=== PATIENT | male | born 1980 | race American Indian/Alaskan Native ===

== ENCOUNTER 2021-01-17 10:36 | Emergency (ER) | payer SELFPAY ==
[2021-01-17] MEDS ORDERED: DICYCLOMINE 20 MG TAB PO ONE (10:52)
[2021-01-17] MEDS ORDERED: FAMOTIDINE 20 MG TAB PO ONE (10:52)
[2021-01-17 10:53] VITALS: BP 117/84
[2021-01-17] MEDS ORDERED: ONDANSETRON 4 MG ODT TAB PO ONE (10:53)
[2021-01-17 11:46] LABS: Bacteria,Urine 1+ /HPF (Negative); Bilirubin,Urine NEG (Negative); Blood,Urine NEG (Negative); Color,Urine Amber (Yellow); Mucus,Urine 1+ /HPF; Protein,Urine <15 mg/dL mg/dL (Negative)
--- NOTE | 2021-01-17 11:51 | Emergency Department Report ---
ED Abdominal Pain HPI - General Chief Complaint: Abdominal Pain Stated Complaint: PAIN IN THE LOWER CHEST, HAVE NOT EATEN IN A WEEK Time Seen by Provider: 01/17/21 10:48 Source: patient Mode of arrival: Ambulatory Limitations: No Limitations - History of Present Illness Initial Comments: This is a 40-year-old male nontoxic, well nourished in appearance, no acute signs of distress presents to the ED with c/o of nausea and vomiting and abdominal pain several days. Patient describes vomiting as food content and yellow gastric acid. Patient describes abdominal pain as cramping and aching with level of 3/10 in the upper abdomen/epigastric area. Patient denies any radiation of pain. Patient denies chest pain, short of breath, fever, hemoptysis, blood in stool, chills, headache, stiff neck, numbness or tingling. Patient denies any diarrhea or constipation. Denies any blood in stool or vomit. Patient denies any recent travels. Patient denies any allergies or significant past medical history. MD Complaint: abdominal pain -: days(s) Location: LUQ, RUQ, epigastric Radiation: none Migration to: no migration Severity: mild Severity scale (0 -10): 3 Quality: cramping, aching Consistency: intermittent Improves With: nothing Worsens With: nothing Associated Symptoms: nausea, vomiting. denies: diarrhea, fever, chills, constipation, dysuria, hematemesis, hematochezia, melena, hematuria, anorexia, syncope - Related Data Allergies Allergy/AdvReac Type Severity Reaction Status Date / Time No Known Allergies Allergy Unverified 01/17/21 10:45 ED Review of Systems ROS: Stated complaint: PAIN IN THE LOWER CHEST, HAVE NOT EATEN IN A WEEK Other details as noted in HPI Comment: All other systems reviewed and negative Constitutional: denies: chills, fever Eyes: denies: eye pain, eye discharge, vision change ENT: denies: ear pain, throat pain Respiratory: denies: cough, shortness of breath, wheezing Cardiovascular: denies: chest pain, palpitations Endocrine: no symptoms reported Gastrointestinal: abdominal pain, nausea, vomiting. denies: diarrhea, constipation, hematemesis, melena, hematochezia Genitourinary: denies: urgency, dysuria Musculoskeletal: denies: back pain, joint swelling, arthralgia Skin: denies: rash, lesions Neurological: denies: headache, weakness, paresthesias Psychiatric: denies: anxiety, depression Hematological/Lymphatic: denies: easy bleeding, easy bruising ED Past Medical Hx - Past Medical History Previous Medical History?: No - Surgical History Past Surgical History?: No - Social History Smoking Status: Current Every Day Smoker Substance Use Type: Alcohol, Marijuana ED Physical Exam - General Limitations: No Limitations General appearance: alert, in no apparent distress - Head Head exam: Present: atraumatic, normocephalic - Eye Eye exam: Present: normal appearance - Neck Neck exam: Present: normal inspection, full ROM. Absent: tenderness, meningismus, lymphadenopathy - Respiratory Respiratory exam: Present: normal lung sounds bilaterally. Absent: respiratory distress, wheezes, rales, rhonchi, stridor, chest wall tenderness, accessory m uscle use, decreased breath sounds, prolonged expiratory - Cardiovascular Cardiovascular Exam: Present: regular rate, normal rhythm, normal heart sounds. Absent: bradycardia, tachycardia, irregular rhythm, systolic murmur, diastolic murmur, rubs, gallop - GI/Abdominal GI/Abdominal exam: Present: soft, tenderness (RUQ), normal bowel sounds. Absent: distended, guarding, rebound, rigid, diminished bowel sounds - Extremities Exam Extremities exam: Present: normal inspection, full ROM - Back Exam Back exam: Present: normal inspection, full ROM. Absent: tenderness, CVA tenderness (R), CVA tenderness (L), muscle spasm, paraspinal tenderness, vertebral tenderness, rash noted - Neurological Exam Neurological exam: Present: alert, oriented X3, normal gait - Psychiatric Psychiatric exam: Present: normal affect, normal mood - Skin Skin exam: Present: warm, dry, intact, normal color. Absent: rash ED Course Vital Signs 01/17/21 10:49 Temperature 98.9 F Pulse Rate 75 Respiratory 20 Rate Blood Pressure 117/84 O2 Sat by Pulse 99 Oximetry - Reevaluation(s) Reevaluation #1: 01/17/21 11:51 Patient is speaking in full sentences with no signs of distress noted. Reevaluation #2: 01/17/21 14:15 Patient is not in the waiting room anywhere to be found. RN try to contact patient with phone number listed but was unsuccessful. Patient eloped without telling anybody at this time. CT abd with IV contrast ordered but patient is not found in the ED. I was not able to reevaluate patient or complete the ER physical exam, treatment, and diagnostic imagings. ED Medical Decision Making - Lab Data Result diagrams: 01/17/21 13:04 01/17/21 13:04 Lab Results 01/17/21 01/17/21 01/17/21 Range/Units 11:04 13:04 13:04 WBC 7.5 (4.5-11.0) K/mm3 RBC 4.64 (3.65-5.03) M/mm3 Hgb 14.1 (11.8-15.2) gm/dl Hct 39.5 (35.5-45.6) % MCV 85 (84-94) fl MCH 30 (28-32) pg MCHC 36 H (32-34) % RDW 17.2 H (13.2-15.2) % Plt Count 139 L (140-440) K/mm3 Lymph % (Auto) 21.9 (13.4-35.0) % [place] % (Auto) 9.7 H (0.0-7.3) % Eos % (Auto) 2.2 (0.0-4.3) % Baso % (Auto) 0.4 (0.0-1.8) % Lymph # (Auto) 1.7 (1.2-5.4) K/mm3 [place] # (Auto) 0.7 (0.0-0.8) K/mm3 Eos # (Auto) 0.2 (0.0-0.4) K/mm3 Baso # (Auto) 0.0 (0.0-0.1) K/mm3 Seg Neutrophils % 65.8 (40.0-70.0) % Seg Neutrophils # 5.0 (1.8-7.7) K/mm3 PT (12.2-14.9) Sec. INR (0.87-1.13) APTT (24.2-36.6) Sec. Sodium 134 L (137-145) mmol/L Potassium 4.0 (3.6-5.0) mmol/L Chloride 93.8 L (98-107) mmol/L Carbon Dioxide 32 H (22-30) mmol/L Anion Gap 12 mmol/L BUN 12 (9-20) mg/dL Creatinine 1.0 (0.8-1.3) mg/dL Estimated GFR > 60 ml/min BUN/Creatinine Ratio 12 % Glucose 94 (75-100) mg/dL Calcium 9.4 (8.4-10.2) mg/dL Total Bilirubin 1.70 H (0.1-1.2) mg/dL AST 16 (5-40) units/L ALT 6 L (7-56) units/L Alkaline Phosphatase 92 (35-129) units/L Troponin T < 0.010 (0.00-0.029) ng/mL Total Protein 8.2 (6.3-8.2) g/dL Albumin 4.7 (3.9-5) g/dL Albumin/Globulin Ratio 1.3 % Lipase (13-60) units/L Urine Color [place] (Yellow) Urine Turbidity Clear (Clear) Urine pH 6.0 (5.0-7.0) Ur Specific [place] 1.021 (1.003-1.030) Urine Protein <15 mg/dl (Negative) mg/dL Urine Glucose (UA) Neg (Negative) mg/dL Urine Ketones Neg (Negative) mg/dL Urine Blood Neg (Negative) Urine Nitrite Neg (Negative) Urine Bilirubin Neg (Negative) Urine Urobilinogen 4.0 (<2.0) mg/dL Ur Leukocyte Esterase Tr (Negative) Urine WBC (Auto) 2.0 (0.0-6.0) /HPF Urine RBC (Auto) 1.0 (0.0-6.0) /HPF U Epithel Cells (Auto) < 1.0 (0-13.0) /HPF Urine Bacteria (Auto) 1+ (Negative) /HPF Urine Mucus 1+ /HPF 01/17/21 01/17/21 Range/Units 13:04 13:04 WBC (4.5-11.0) K/mm3 RBC (3.65-5.03) M/mm3 Hgb (11.8-15.2) gm/dl Hct (35.5-45.6) % MCV (84-94) fl MCH (28-32) pg MCHC (32-34) % RDW (13.2-15.2) % Plt Count (140-440) K/mm3 Lymph % (Auto) (13.4-35.0) % [place] % (Auto) (0.0-7.3) % Eos % (Auto) (0.0-4.3) % Baso % (Auto) (0.0-1.8) % Lymph # (Auto) (1.2-5.4) K/mm3 [place] # (Auto) (0.0-0.8) K/mm3 Eos # (Auto) (0.0-0.4) K/mm3 Baso # (Auto) (0.0-0.1) K/mm3 Seg Neutrophils % (40.0-70.0) % Seg Neutrophils # (1.8-7.7) K/mm3 PT 13.7 (12.2-14.9) Sec. INR 1.07 (0.87-1.13) APTT 61.3 H* (24.2-36.6) Sec. Sodium (137-145) mmol/L Potassium (3.6-5.0) mmol/L Chloride (98-107) mmol/L Carbon Dioxide (22-30) mmol/L Anion Gap mmol/L BUN (9-20) mg/dL Creatinine (0.8-1.3) mg/dL Estimated GFR ml/min BUN/Creatinine Ratio % Glucose (75-100) mg/dL Calcium (8.4-10.2) mg/dL Total Bilirubin (0.1-1.2) mg/dL AST (5-40) units/L ALT (7-56) units/L Alkaline Phosphatase (35-129) units/L Troponin T (0.00-0.029) ng/mL Total Protein (6.3-8.2) g/dL Albumin (3.9-5) g/dL Albumin/Globulin Ratio % Lipase 31 (13-60) units/L Urine Color (Yellow) Urine Turbidity (Clear) Urine pH (5.0-7.0) Ur Specific [place] (1.003-1.030) Urine Protein (Negative) mg/dL Urine Glucose (UA) (Negative) mg/dL Urine Ketones (Negative) mg/dL Urine Blood (Negative) Urine Nitrite (Negative) Urine Bilirubin (Negative) Urine Urobilinogen (<2.0) mg/dL Ur Leukocyte Esterase (Negative) Urine WBC (Auto) (0.0-6.0) /HPF Urine RBC (Auto) (0.0-6.0) /HPF U Epithel Cells (Auto) (0-13.0) /HPF Urine Bacteria (Auto) (Negative) /HPF Urine Mucus /HPF - Radiology Data [address] [address] XRay Report Signed Patient: GRISELDA TELLEZ MR#: [id number] : 1980 Acct:[id number] Age/Sex: 40 / M ADM Date: 01/17/21 Loc: ED Attending Dr: Ordering Physician: KIMBERLY MATTHEWS NP Date of Service: 01/17/21 Procedure(s): XR abd series w cxr 1V Accession Number(s): [id number] cc: KIMBERLY MATTHEWS NP Fluoro Time In Minutes: ABDOMEN 4 VIEW(S) INDICATION / CLINICAL INFORMATION: abd pain with n/v. COMPARISON: None available. FINDINGS: TUBES / LINES: None. BOWEL GAS PATTERN: No significant abnormality. FREE AIR / EXTRALUMINAL GAS: None seen. ADDITIONAL FINDINGS: No significant additional findings. CHEST: Visualized chest shows no significant abnormality. IMPRESSION: No significant abnormality. Signer Name: Duane Jonas MD Signed: 01/17/2021 12:17 PM Workstation Name: [id number] Transcribed By: SS Dictated By: DUANE JONAS Electronically Authenticated By: DUANE JONAS Signed Date/Time: 01/17/211216 DD/ 15 TD/TT: [address] [address] Ultrasound Report Signed Patient: GRISELDA TELLEZ MR#: [id number] : 1980 Acct:[id number] Age/Sex: 40 / M ADM Date: 01/17/21 Loc: ED Attending Dr: Ordering Physician: KIMBERLY MATTHEWS NP Date of Service: 01/17/21 Procedure(s): US abdomen complete Accession Number(s): [id number] cc: KIMBERLY MATTHEWS NP ULTRASOUND ABDOMEN, COMPLETE INDICATION / CLINICAL INFORMATION: abd pain with n/v. COMPARISON: None available. FINDINGS: PANCREAS: No significant abnormality. ABDOMINAL AORTA: No significant abnormality. IVC: No significant abnormality. LIVER: No significant abnormality. The liver measures 13.2 cm in length. GALLBLADDER: No significant abnormality. BILE DUCTS: No significant abnormality. Common bile duct measures 2 mm. KIDNEYS: Right: The right kidney measures 10.1 x 6.6 x 5.7 cm and is normal in echogenicity. Left: The left kidney measures 10.8 x 6.5 x 5.7 cm and is normal in echogenicity. There is a 1 cm rounded hypoechoic structure within the lower pole of the left kidney most compatible with a cyst. SPLEEN: No significant abnormality. The spleen measures 10.8 cm in length. FREE FLUID: None. ADDITIONAL FINDINGS: None. IMPRESSION: 1. No significant sonographic abnormality of the abdomen. 2. 1 cm left renal cyst. Signer Name: Duane Jonas MD Signed: 01/17/2021 12:16 PM Workstation Name: [id number] Transcribed By: BOBY Dictated By: DUANE JONAS Electronically Authenticated By: DUANE JONAS Signed Date/Time: 01/17/211215 DD/ 13 TD/TT: - Medical Decision Making 40-year-old male that presents with abdominal pain with nausea vomiting. Patient is stable and was examined by me. Labs has been obtained. Ultrasound and x-ray has been obtained. Patient eloped without telling anybody prior to receiving results of labs and ultrasound/x-ray and to perform CT and reevaluation with further testing and imaging studies. CT has been ordered but patient eloped. Critical care attestation.: If time is entered above; I have spent that time in minutes in the direct care of this critically ill patient, excluding procedure time. ED Disposition Clinical Impression: Abdominal pain Qualifiers: Abdominal location: upper abdomen, unspecified Qualified Code(s): R10.10 - Upper abdominal pain, unspecified Nausea & vomiting Qualifiers: Vomiting type: unspecified Vomiting Intractability: unspecified Qualified Code(s): R11.2 - Nausea with vomiting, unspecified Disposition: -07 ELOPED Is pt being admited?: No Condition: Undetermined
--- NOTE | 2021-01-17 12:20 | Ultrasound Report ---
ULTRASOUND ABDOMEN, COMPLETE INDICATION / CLINICAL INFORMATION: abd pain with n/v. COMPARISON: None available. FINDINGS: PANCREAS: No significant abnormality. ABDOMINAL AORTA: No significant abnormality. IVC: No significant abnormality. LIVER: No significant abnormality. The liver measures 13.2 cm in length. GALLBLADDER: No significant abnormality. BILE DUCTS: No significant abnormality. Common bile duct measures 2 mm. KIDNEYS: Right: The right kidney measures 10.1 x 6.6 x 5.7 cm and is normal in echogenicity. Left: T he left kidney measures 10.8 x 6.5 x 5.7 cm and is normal in echogenicity. There is a 1 cm rounded hy poechoic structure within the lower pole of the left kidney most compatible with a cyst. SPLEEN: No significant abnormality. The spleen measures 10.8 cm in length. FREE FLUID: None. ADDITIONAL FINDINGS: None. IMPRESSION: 1. No significant sonographic abnormality of the abdomen. 2. 1 cm left renal cyst. Signer Name: John Jonas MD Signed: 01/17/2021 12:16 PM Workstation Name: [id number]
--- NOTE | 2021-01-17 12:21 | XRay Report ---
ABDOMEN 4 VIEW(S) INDICATION / CLINICAL INFORMATION: abd pain with n/v. COMPARISON: None available. FINDINGS: TUBES / LINES: None. BOWEL GAS PATTERN: No significant abnormality. FREE AIR / EXTRALUMINAL GAS: None seen. ADDITIONAL FINDINGS: No significant additional findings. CHEST: Visualized chest shows no significant abnormality. IMPRESSION: No significant abnormality. Signer Name: John Jonas MD Signed: 01/17/2021 12:17 PM Workstation Name: [id number]
[2021-01-17 13:35] LABS: Basophils % (Auto) 0.4 % (0.0-1.8); Eosinophils # (Auto) 0.2 K/mm3 (0.0-0.4); Eosinophils % (Auto) 2.2 % (0.0-4.3); Hematocrit 39.5 % (35.5-45.6); Hemoglobin 14.1 gm/dl (11.8-15.2); Lymphocytes # (Auto) 1.7 K/mm3 (1.2-5.4); Lymphocytes % (Auto) 21.9 % (13.4-35.0); Mean Corpuscular HGB Conc 36 % (32-34); Mean Corpuscular Volume 85 fl (84-94); Monocytes # (Auto) 0.7 K/mm3 (0.0-0.8); Monocytes % (Auto) 9.7 % (0.0-7.3); Platelet Count 139 K/mm3 (140-440); Red Blood Count 4.64 M/mm3 (3.65-5.03); Red Cell Distribution Width 17.2 % (13.2-15.2)
[2021-01-17 13:43] LABS: INR 1.07 (0.87-1.13)
[2021-01-17 13:50] LABS: Alanine Aminotransferase 6 units/L (7-56); Albumin 4.7 g/dL (3.9-5); BUN/Creatinine Ratio 12; Blood Urea Nitrogen 12 mg/dL (9-20); Calcium 9.4 mg/dL (8.4-10.2); Hemolysis Index 12
[2021-01-17 13:52] LABS: Partial Thromboplastin Time 61.3 Sec. (24.2-36.6)
--- NOTE | 2021-01-19 10:28 | Electrocardiograph Report ---
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
== END 2021-01-17 14:15 | disposition left against medical advice (07) ==
LOC: ED 10:36
DX: R10.13 Epigastric pain (principal); R10.11 Right upper quadrant pain; R11.2 Nausea with vomiting, unspecified; R10.12 Left upper quadrant pain; F17.200 Nicotine dependence, unspecified, uncomplicated; F12.90 Cannabis use, unspecified, uncomplicated; Z72.89 Other problems related to lifestyle; Z79.899 Other long term (current) drug therapy
CPT/HCPCS: 36415; 74022; 76700; 80053; 81001; 83690; 84484; 85025; 85610; 85730; 93005; 99284; Q0162

== ENCOUNTER 2021-01-23 16:13 | Emergency (ER) | payer SELFPAY ==
[2021-01-23 16:28] VITALS: BP 127/80
[2021-01-23 16:57] LABS: Basophils % (Auto) 0.5 % (0.0-1.8); Eosinophils # (Auto) 0.2 K/mm3 (0.0-0.4); Eosinophils % (Auto) 2.4 % (0.0-4.3); Lymphocytes # (Auto) 1.8 K/mm3 (1.2-5.4); Lymphocytes % (Auto) 21.6 % (13.4-35.0); Mean Corpuscular HGB Conc 36 % (32-34); Mean Corpuscular Volume 84 fl (84-94); Monocytes # (Auto) 0.6 K/mm3 (0.0-0.8); Monocytes % (Auto) 7.6 % (0.0-7.3); Platelet Count 151 K/mm3 (140-440); Red Blood Count 4.37 M/mm3 (3.65-5.03); Red Cell Distribution Width 17.1 % (13.2-15.2)
[2021-01-23 16:59] LABS: Hematocrit 36.6 % (35.5-45.6); Hemoglobin 13.3 gm/dl (11.8-15.2)
[2021-01-23 17:14] LABS: Alanine Aminotransferase 5 units/L (7-56); Albumin 4.1 g/dL (3.9-5); BUN/Creatinine Ratio 8; Blood Urea Nitrogen 8 mg/dL (9-20); Calcium 9.2 mg/dL (8.4-10.2); Hemolysis Index 5
--- NOTE | 2021-01-23 18:23 | Emergency Department Report ---
ED General Adult HPI - General Chief complaint: Abdominal Pain Stated complaint: STOMACH/BACK PAIN Time Seen by Provider: 01/23/21 17:29 Source: patient Mode of arrival: Ambulatory Limitations: No Limitations - History of Present Illness Initial comments: 40-year-old -Indian male patient presents with complaints of intermittent abdominal pain, nausea, and vomiting x1 month. Patient was seen with the same complaints here in the ED on 01/17/2021. At that time, patient eloped prior to having his CT scan of his abdomen performed. Patient's labs, abdominal ultrasound, and chest x-ray were without acute abnormalities at that time. Patient denies any new symptoms. He continues to deny any hematemesis/coffee-ground emesis, melena/hematochezia, shortness of breath, chest pain, urinary symptoms, history of cancer/other medical conditions, c onstipation, or diarrhea. Patient also denies any alcohol use or history of abdominal surgery. He reports he has tried many OTC indigestion, antacid, and gas medications without relief of his symptoms - Related Data Previous Rx's Medication Instructions Recorded Last Taken Type Dicyclomine [Bentyl] 20 mg PO QID PRN #40 tablet 01/23/21 Unknown Rx Dicyclomine [Bentyl] 20 mg PO QID PRN #40 tablet 01/23/21 Unknown Rx Famotidine [Pepcid] 20 mg PO BID 10 Days #20 tablet 01/23/21 Unknown Rx Famotidine [Pepcid] 20 mg PO BID 14 Days #28 tablet 01/23/21 Unknown Rx Ondansetron [Zofran Odt] 4 mg PO Q8HR PRN #20 tab.rapdis 01/23/21 Unknown Rx Ondansetron [Zofran Odt] 4 mg PO Q8HR PRN #20 tab.rapdis 01/23/21 Unknown Rx Allergies Allergy/AdvReac Type Severity Reaction Status Date / Time No Known Allergies Allergy Verified 01/23/21 16:29 ED Review of Systems ROS: Stated complaint: STOMACH/BACK PAIN Other details as noted in HPI Constitutional: denies: chills, diaphoresis, fever, malaise, weakness Respiratory: denies: cough, shortness of breath Cardiovascular: denies: chest pain Gastrointestinal: abdominal pain, nausea, vomiting. denies: diarrhea, constipa tion, hematemesis, melena, hematochezia Genitourinary: denies: urgency, dysuria, frequency Skin: denies: change in color Hematological/Lymphatic: denies: swollen glands ED Past Medical Hx - Social History Smoking Status: Current Every Day Smoker Substance Use Type: Alcohol, Marijuana - Medications Home Medications: Home Medications Medication Instructions Recorded Confirmed Last Taken Type Dicyclomine [Bentyl] 20 mg PO QID PRN #40 tablet 01/23/21 Unknown Rx Dicyclomine [Bentyl] 20 mg PO QID PRN #40 tablet 01/23/21 Unknown Rx Famotidine [Pepcid] 20 mg PO BID 10 Days #20 tablet 01/23/21 Unknown Rx Famotidine [Pepcid] 20 mg PO BID 14 Days #28 tablet 01/23/21 Unknown Rx Ondansetron [Zofran Odt] 4 mg PO Q8HR PRN #20 tab.rapdis 01/23/21 Unknown Rx Ondansetron [Zofran Odt] 4 mg PO Q8HR PRN #20 tab.rapdis 01/23/21 Unknown Rx ED Physical Exam - General Limitations: No Limitations General appearance: alert, in no apparent distress - Head Head exam: Present: atraumatic, normocephalic - Eye Eye exam: Present: normal appearance - ENT ENT exam: Present: normal exam - Neck Neck exam: Present: normal inspection - Respiratory Respiratory exam: Present: normal lung sounds bilaterally. Absent: respiratory distress - Cardiovascular Cardiovascular Exam: Present: regular rate, normal rhythm - GI/Abdominal GI/Abdominal exam: Present: soft, tenderness (Epigastric), normal bowel sounds. Absent: distended, rebound, rigid, mass - Extremities Exam Extremities exam: Present: full ROM - Back Exam Back exam: Present: normal inspection - Neurological Exam Neurological exam: Present: alert, oriented X3, normal gait - Psychiatric Psychiatric exam: Present: normal affect, normal mood - Skin Skin exam: Present: warm, dry, intact, normal color. Absent: rash ED Course Vital Signs 01/23/21 16:28 Temperature 98.2 F Pulse Rate 74 Respiratory 16 Rate Blood Pressure 127/80 [Left] O2 Sat by Pulse 100 Oximetry ED Medical Decision Making - Lab Data Result diagrams: 01/23/21 16:39 01/23/21 16:39 Lab Results 01/23/21 01/23/21 Range/Units 16:39 16:39 WBC 8.3 (4.5-11.0) K/mm3 RBC 4.37 (3.65-5.03) M/mm3 Hgb 13.3 (11.8-15.2) gm/dl Hct 36.6 (35.5-45.6) % MCV 84 (84-94) fl MCH 30 (28-32) pg MCHC 36 H (32-34) % RDW 17.1 H (13.2-15.2) % Plt Count 151 (140-440) K/mm3 Lymph % (Auto) 21.6 (13.4-35.0) % [place] % (Auto) 7.6 H (0.0-7.3) % Eos % (Auto) 2.4 (0.0-4.3) % Baso % (Auto) 0.5 (0.0-1.8) % Lymph # (Auto) 1.8 (1.2-5.4) K/mm3 [place] # (Auto) 0.6 (0.0-0.8) K/mm3 Eos # (Auto) 0.2 (0.0-0.4) K/mm3 Baso # (Auto) 0.0 (0.0-0.1) K/mm3 Seg Neutrophils % 67.9 (40.0-70.0) % Seg Neutrophils # 5.7 (1.8-7.7) K/mm3 Sodium 136 L (137-145) mmol/L Potassium 4.2 (3.6-5.0) mmol/L Chloride 99.1 (98-107) mmol/L Carbon Dioxide 30 (22-30) mmol/L Anion Gap 11 mmol/L BUN 8 L (9-20) mg/dL Creatinine 1.0 (0.8-1.3) mg/dL Estimated GFR > 60 ml/min BUN/Creatinine Ratio 8 % Glucose 95 (75-100) mg/dL Calcium 9.2 (8.4-10.2) mg/dL Total Bilirubin 0.90 (0.1-1.2) mg/dL AST 12 (5-40) units/L ALT 5 L (7-56) units/L Alkaline Phosphatase 85 (35-129) units/L Total Protein 7.7 (6.3-8.2) g/dL Albumin 4.1 (3.9-5) g/dL Albumin/Globulin Ratio 1.1 % Lipase 45 (13-60) units/L - Radiology Data Radiology results: report reviewed CT ABDOMEN AND PELVIS WITH CONTRAST HISTORY: Upper abdominal pain COMPARISON: Abdominal ultrasound on 01/17/2021 TECHNIQUE: Routine abdominal and pelvic CT exam performed following intravenous contrast administration.. All CT scans at this location are performed using CT dose reduction for ALARA by means of automated exposure control. FINDINGS: CT ABDOMEN: Lung Bases: No significant abnormality. Liver: No significant abnormality. Biliary: No significant abnormality. Spleen: There is a tiny 1 cm cyst in the spleen. Pancreas: No significant abnormality. Adrenals: No significant abnormality. Kidneys: No acute findings. Tiny 1 cm cyst in the left kidney. Lymphatics: No lymphadenopathy. Vasculature: No significant abnormality. Bowel/Peritoneum: No significant abnormality. No free air. No free fluid. Normal appendix. CT PELVIC: : No significant abnormality. Lymphatics: No lymphadenopathy. Osseous Structures: No aggressive appearing osseous lesions. Additional Findings: None IMPRESSION: 1. No acute findings or findings to explain the patient's symptoms. - Medical Decision Making 40-year-old -Indian male patient presents with complaints of in termittent abdominal pain, nausea, and vomiting x1 month. Patient was seen with the same complaints here in the ED on 01/17/2021. At that time, patient eloped prior to having his CT scan of his abdomen performed. Patient's labs, abdominal ultrasound, and chest x-ray were without acute abnormalities at that time. Patient denies any new symptoms. He continues to deny any hematemesis/coffee-ground emesis, melena/hematochezia, shortness of breath, chest pain, urinary symptoms, history of cancer/other medical conditions, constipation, or diarrhea. Patient also denies any alcohol use or history of abdominal surgery. He reports he has tried many OTC indigestion, antacid, and gas medications without relief of his symptoms Labs remain normal. CT abdomen is negative for any acute abnormalities. Patient given Bentyl, Zofran, and Pepcid-he states his pain has resolved. Recommend patient follows up with GI for further evaluation and possible endoscopy. His vitals are normal, he is well-appearing, he is stable for discharge home. Strict return precautions were discussed in detail with patient who verbalizes understanding. Critical care attestation.: If time is entered above; I have spent that time in minutes in the direct care of this critically ill patient, excluding procedure time. ED Disposition Clinical Impression: Abdominal pain, recurrent Disposition: DC-01 TO HOME OR SELFCARE Is pt being admited?: No Condition: Stable Instructions: Abdominal Pain, Adult, Gastritis, Adult Prescriptions: Dicyclomine [Bentyl] 20 mg PO QID PRN #40 tablet PRN Reason: abdominal cramping Dicyclomine [Bentyl] 20 mg PO QID PRN #40 tablet PRN Reason: cramping pain Famotidine [Pepcid] 20 mg PO BID 10 Days #20 tablet Famotidine [Pepcid] 20 mg PO BID 14 Days #28 tablet Ondansetron [Zofran Odt] 4 mg PO Q8HR PRN #20 tab.rapdis PRN Reason: Nausea Ondansetron [Zofran Odt] 4 mg PO Q8HR PRN #20 tab.rapdis PRN Reason: Nausea Referrals: [facility] [Provider Group] - 3-5 Days
[2021-01-23] MEDS ORDERED: FAMOTIDINE 20 MG TAB PO ONE (18:24)
[2021-01-23] MEDS ORDERED: ONDANSETRON 4 MG ODT TAB PO ONE (18:24)
[2021-01-23] MEDS ORDERED: DICYCLOMINE 20 MG TAB PO ONE (18:24)
--- NOTE | 2021-01-23 19:05 | Cat Scan Report ---
CT ABDOMEN AND PELVIS WITH CONTRAST HISTORY: Upper abdominal pain COMPARISON: Abdominal ultrasound on 01/17/2021 TECHNIQUE: Routine abdominal and pelvic CT exam performed following intravenous contrast administrat ion.. All CT scans at this location are performed using CT dose reduction for ALARA by means of autom ated exposure control. FINDINGS: CT ABDOMEN: Lung Bases: No significant abnormality. Liver: No significant abnormality. Biliary: No significant abnormality. Spleen: There is a tiny 1 cm cyst in the spleen. Pancreas: No significant abnormality. Adrenals: No significant abnormality. Kidneys: No acute findings. Tiny 1 cm cyst in the left kidney. Lymphatics: No lymphadenopathy. Vasculature: No significant abnormality. Bowel/Peritoneum: No significant abnormality. No free air. No free fluid. Normal appendix. CT PELVIC: : No significant abnormality. Lymphatics: No lymphadenopathy. Osseous Structures: No aggressive appearing osseous lesions. Additional Findings: None IMPRESSION: 1. No acute findings or findings to explain the patient's symptoms. Signer Name: Nayan Morel MD Signed: 01/23/2021 7:01 PM Workstation Name: [id number]
== END 2021-01-23 20:25 | disposition home or self-care (01) ==
LOC: ED 16:13
DX: R10.13 Epigastric pain (principal); R11.2 Nausea with vomiting, unspecified; F17.200 Nicotine dependence, unspecified, uncomplicated; F12.90 Cannabis use, unspecified, uncomplicated; Z72.89 Other problems related to lifestyle; Z79.899 Other long term (current) drug therapy
CPT/HCPCS: 36415; 74177; 80053; 83690; 85025; 99284; Q9967; Q0162

== ENCOUNTER 2021-03-18 13:38 | Emergency (ER) | payer SELFPAY ==
[2021-03-18] MEDS ORDERED: diphenhydrAMINE 25 MG CAP PO ONE (15:02)
[2021-03-18] MEDS ORDERED: FAMOTIDINE 20 MG TAB PO ONE (15:02)
[2021-03-18] MEDS ORDERED: methylPREDNISolone ACETATE 80 MG/1 ML INJ IM ONE (15:02)
--- NOTE | 2021-03-18 15:09 | Emergency Department Report ---
ED Rash HPI - HPI Chief Complaint: Skin Rash Stated Complaint: OUT BREAK Time Seen by Provider: 03/18/21 15:01 Duration: 1 Day Location: Other Suspected Cause: Unknown Rash Symptoms: Yes Itching, No Facial Swelling, No Tongue/Oral Swelling, No Breathing Difficulties, No Choking Sensation, No Wheezing/Dyspnea, No Peeling, No Blistering, No Fever, No Lightheaded, No Malaise, No Myalgias Severity: moderate Other History: 40 yo comes to er with genralized urticarial rash. abc intact. vss. no cp or sob. unknown allergen. no one in home has a rash. never had rash like this before. no insect bite ED Review of Systems ROS: Stated complaint: OUT BREAK Other details as noted in HPI Comment: All other systems reviewed and negative ED Past Medical Hx - Past Medical History Previous Medical History?: Yes Hx GERD: Yes - Surgical History Past Surgical History?: No - Family History Family history: no significant - Social History Smoking Status: Current Every Day Smoker Substance Use Type: Alcohol, Marijuana - Medications Home Medications: Home Medications Medication Instructions Recorded Confirmed Last Taken Type Famotidine [Pepcid] 20 mg PO DAILY #30 tablet 03/18/21 Unknown Rx hydrOXYzine PAMOATE [Vistaril] 25 mg PO Q6HR PRN #20 capsule 03/18/21 Unknown Rx predniSONE [Deltasone] 20 mg PO DAILY #5 tablet 03/18/21 Unknown Rx Rash Exam - Exam General: Vital signs noted. No distress. Alert and acting appropriately. HEENT: No Periorbital Edema, No Conjuctival Injection, No Chemosis, No Perioral Edema, No Tongue Edema, No Uvular Edema, No Compromised Airway, No Drooling Lungs: Yes Good Air Exchange (Normal Breath Sounds), No Wheezes, No Ronchi, No Stridor, No Cough, No Labored Respirations, No Retractions, No Use of Accessory Muscles, No Other Abnormal Lung Sounds Heart: Yes Regular, No Murmur Skin: Yes Urticarial Rash Other: Positive: Abdomen Normal, Neurologic Normal, Musculoskeletal Normal ED Course Vital Signs 03/18/21 14:05 Temperature 99.1 F Pulse Rate 77 Respiratory 20 Rate Blood Pressure 103/68 O2 Sat by Pulse 98 Oximetry ED Medical Decision Making - Medical Decision Making medicated with depomedrol, benadryl and pepcid in ER ? allergen abc intact vss Vital Signs 03/18/21 14:05 Temperature 99.1 F Pulse Rate 77 Respiratory 20 Rate Blood Pressure 103/68 O2 Sat by Pulse 98 Oximetry pt being dc home with dc plan of care including pcp/derm follow up. pt verbalizes understanding of plan of care. - Differential Diagnosis urticarial rash Critical care attestation.: If time is entered above; I have spent that time in minutes in the direct care of this critically ill patient, excluding procedure time. ED Disposition Clinical Impression: Urticarial rash Disposition: DC-01 TO HOME OR SELFCARE Is pt being admited?: No Does the pt Need Aspirin: No Condition: Stable Instructions: Hives Additional Instructions: meds as ordered follow up with pcp or derm to find out what is causing the rash in the ER we can not do those tests Prescriptions: predniSONE [Deltasone] 20 mg PO DAILY #5 tablet Famotidine [Pepcid] 20 mg PO DAILY #30 tablet hydrOXYzine PAMOATE [Vistaril] 25 mg PO Q6HR PRN #20 capsule PRN Reason: Itching Referrals: AYDEN MILLAN MD [Staff Physician] - 3-5 Days AJY JAY JACINTO MD [Staff Physician] - 3-5 Days Time of Disposition: 15:04
[2021-03-18 15:50] VITALS: BP 110/68
== END 2021-03-18 15:50 | disposition home or self-care (01) ==
LOC: ED 13:38
DX: L50.9 Urticaria, unspecified (principal); K21.9 Gastro-esophageal reflux disease without esophagitis; F17.200 Nicotine dependence, unspecified, uncomplicated; F12.90 Cannabis use, unspecified, uncomplicated; Z79.899 Other long term (current) drug therapy
CPT/HCPCS: 96372; 99282; J1040